=== PATIENT | male | born 1950 ===

== ENCOUNTER → 2017-04-18 12:42 | Outpatient (CLI) | payer OTHER ==
[~2017-04-18 12:42] MED LIST: ENALAPRIL MALEA10 MG PO; GABAPENTIN300 MG PO; SIMVASTATIN40 MG PO; SYNTHROID88 MCG PO
== END | disposition home or self-care (01) ==
LOC: RAD 12:42
DX: Z76.89 Persons encountering health services in other specified circumstances (principal)

== ENCOUNTER 2017-04-18 17:06 | Outpatient (CLI) | payer OTHER ==
[2017-04-26] MEDS ORDERED: CALCITRIOL0.25 MCG PO (15:40)
[2017-04-26] MEDS ORDERED: MONTELUKAST SOD10 MG PO (15:40)
[2017-04-26] MEDS ORDERED: ASA81 MG PO (15:40)
== END 2017-04-18 17:09 | disposition home or self-care (01) ==
LOC: EKG 17:06
DX: I49.8 Other specified cardiac arrhythmias (principal)

== ENCOUNTER → 2017-04-30 | Day surgery (SDC) | payer OTHER ==
[~2017-04-30] MED LIST changes: +ASA81 MG PO; +CALCITRIOL0.25 MCG PO; +MONTELUKAST SOD10 MG PO
== END | disposition home or self-care (01) ==
LOC: CIR.AMB 08:21
DX: M75.121 Complete rotator cuff tear or rupture of right shoulder, not specified as traumatic (principal); M19.011 Primary osteoarthritis, right shoulder